=== PATIENT | female | born 1995 | race Caucasian/White ===

== ENCOUNTER 2018-04-15 16:17 | Emergency (ER) | payer OTHER ==
[~2018-04-15] VITALS: Ht 157.4 cm; Wt 56.7 kg
[~2018-04-15 16:17] MED LIST: AUGMENTIN 875 M1 TA1 PO; CALCIUM1 CAP PO; COLACE100 MG PO; FAMILY PHARMAC0.4 MG; IRON FERROUS S325 MG PO; MACROBID100 M1 PO; MOTRIN800 MG PO; NKHM; PERCOCET 325 MG1 TA7 PO; [UNRECOGNIZED DRUG - OTHER] PO
== END 2018-04-15 17:34 | disposition home or self-care (01) ==
LOC: ED 16:17
DX: R76.11 Nonspecific reaction to tuberculin skin test without active tuberculosis (principal); Z01.89 Encounter for other specified special examinations; Z90.710 Acquired absence of both cervix and uterus

== ENCOUNTER 2018-07-19 15:03 | Emergency (ER) | payer OTHER ==
[~2018-07-19] VITALS: Ht 157.4 cm; Wt 59.0 kg
[2018-07-19 15:48] LABS: BILIRUBIN NEGATIVE (NEGATIVE); BLOOD NEGATIVE (NEGATIVE); CLARITY SL CLOUDY (CLEAR); COLOR YELLOW (YELLOW); GLUCOSE NEGATIVE (NEGATIVE); KETONE NEGATIVE (NEGATIVE); LEUKO ESTERASE 2+ (NEGATIVE); NITRITE NEGATIVE (NEGATIVE); PH 7.5 (5.0-9.0); UROBILINOGEN 0.2 E.U./dl (0.2-1.0)
[2018-07-19 15:57] LABS: BACTERIA 2+; WBC 41-50 wbc/hpf (0-5); YEAST 1+
[2018-07-19] MEDS ORDERED: DIFLUCAN150 MG PO (16:23)
== END 2018-07-19 16:45 | disposition home or self-care (01) ==
LOC: ED 15:03
PROVIDERS: Physician Assistant
DX: B37.3 Candidiasis of vulva and vagina (principal); Z11.3 Encounter for screening for infections with a predominantly sexual mode of transmission; Z90.710 Acquired absence of both cervix and uterus